=== PATIENT | male | born 1965 | race American Indian/Alaskan Native ===

== ENCOUNTER 2017-04-18 13:33 | Emergency (ER) | payer SELFPAY ==
[2017-04-18] MEDS ORDERED: BOOSTRIX IM ONE (13:44)
[2017-04-18] MEDS ORDERED: TETRACAINE 0.5% OU STA (13:45)
[2017-04-18] MEDS ORDERED: FUL-GLO OP ONE (13:45)
[2017-04-18 13:47] VITALS: BP 140/92
--- NOTE | 2017-04-18 13:48 | Emergency Department Report ---
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 PT thinks he got metal in his Left eye. PT reports L eye pain since Tuesday. - ROS Review of Systems: + eye pain + drainage - headache - Exam Physical Exam: PT alert and appropriate L eye with photophobia MSE screening note: Focused history and physical exam performed. Due to findings the following was ordered: labs, visual acuity ED Disposition for MSE Condition: Stable
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
[2017-04-18] MEDS ORDERED: MOTRIN PO ONE (14:35)
== END 2017-04-18 15:35 | disposition home or self-care (01) ==
LOC: ED 13:33
DX: S05.02XA Injury of conjunctiva and corneal abrasion without foreign body, left eye, initial encounter (principal); S05.92XA Unspecified injury of left eye and orbit, initial encounter; F17.200 Nicotine dependence, unspecified, uncomplicated; X58.XXXA Exposure to other specified factors, initial encounter; Y93.89 Activity, other specified; Y99.8 Other external cause status; Y92.009 Unspecified place in unspecified non-institutional (private) residence as the place of occurrence of the external cause
CPT/HCPCS: 90471; 90715